=== PATIENT | male | born 1965 | race Two or more races ===

== ENCOUNTER 2021-02-20 01:52 | Emergency (ER) | payer MEDICAID ==
[~2021-02-20] VITALS: Ht 167.6 cm; Wt 67.3 kg
[2021-02-20 05:22] VITALS: BP 138/76
== END 2021-02-20 06:33 | disposition home or self-care (01) ==
LOC: EMS 01:56
DX: S90.811A Abrasion, right foot, initial encounter (principal); Y04.2XXA Assault by strike against or bumped into by another person, initial encounter; Y93.39 Activity, other involving climbing, rappelling and jumping off; Y92.89 Other specified places as the place of occurrence of the external cause; Y99.8 Other external cause status
CPT/HCPCS: 99283